=== PATIENT | female | born 1955 | race Two or more races ===

== ENCOUNTER 2023-10-21 10:52 | Inpatient (IN) | payer OTHER ==
[2023-10-21] MEDS: SODIUM CHLORIDE 0.9% 500 ML INFUS.BAG IV ONE (12:22)
[2023-10-21 12:40] LABS: BASO % 1.7 % (0-2.0); EOS % 2.1 % (0-4.5); HEMATOCRIT 47.8 % (32.4-45.2); HEMOGLOBIN 15.8 GM/dL (10.7-15.3); LYMPH % 27.7 % (8-40); MCH 29.7 pg (25.7-33.7); MCHC 33.1 g/dl (32.0-36.0); MEAN CELL VOLUME 89.7 fl (80-96); MEAN PLT VOLUME 8.7 fl (7.5-11.1); MONO % 12.1 % (3.8-10.2); NEUT % 56.4 % (42.8-82.8); PLATELET COUNT 356 10^3/uL (134-434); RBC 5.33 M/mm3 (3.60-5.2); RDW 16.8 % (11.6-15.6); WHITE BLOOD COUNT 7.5 K/mm3 (4.0-10.0)
[2023-10-21 12:43] LABS: PROTHROMBIN TIME (PATIENT) 11.3 SEC (9.7-13.0)
[2023-10-21 12:46] LABS: ACTIVATED PTT 36.9 SECONDS (25.2-36.5)
[2023-10-21 12:50] LABS: POTASSIUM 4.4 mmol/L (3.5-5.1)
[2023-10-21 12:52] LABS: CALCIUM 9.5 mg/dL (8.5-10.1)
[2023-10-21 12:53] LABS: ALBUMIN 3.7 g/dl (3.4-5.0); BLOOD UREA NITROGEN 17.4 mg/dL (7-18); MAGNESIUM 2.5 mg/dL (1.8-2.4)
[2023-10-21 12:56] LABS: CREATININE 1.1 mg/dL (0.55-1.3)
[2023-10-21] MEDS: metoPROLOL SUCCINATE 25 MG TAB.SR.24H (FP) PO ONE (12:56)
[2023-10-21 12:57] LABS: BILIRUBIN,TOTAL 0.6 mg/dL (0.2-1); TOT PROT 7.9 g/dl (6.4-8.2)
[2023-10-21 16:58] VITALS: BMI 31.5
[2023-10-21] MEDS: ACETAMINOPHEN 325 MG TABLET (FP) PO PRN (18:33)
[2023-10-21] MEDS: SACUBITRIL/VALSARTAN 24 MG-26 MG TABLET PO SCH (21:35)
[2023-10-21] MEDS: ROSUVASTATIN CA 20 MG TABLET PO SCH (21:35)
[2023-10-21] MEDS: LIDOCAINE PATCH REMOVAL MC SCH (21:36)
[2023-10-21] MEDS: GABAPENTIN 300 MG CAPSULE PO SCH (21:36)
[2023-10-22 08:14] LABS: BASO % 0.7 % (0-2.0); EOS % 3.2 % (0-4.5); HEMATOCRIT 46.1 % (32.4-45.2); LYMPH % 41.2 % (8-40); MCH 29.5 pg (25.7-33.7); MCHC 32.7 g/dl (32.0-36.0); MEAN CELL VOLUME 90.3 fl (80-96); MEAN PLT VOLUME 9.3 fl (7.5-11.1); NEUT % 43.9 % (42.8-82.8); PLATELET COUNT 351 10^3/uL (134-434); RDW 17.1 % (11.6-15.6); WHITE BLOOD COUNT 6.2 K/mm3 (4.0-10.0)
[2023-10-22 08:28] LABS: POTASSIUM 4.4 mmol/L (3.5-5.1)
[2023-10-22 08:31] LABS: CALCIUM 8.6 mg/dL (8.5-10.1); MAGNESIUM 2.2 mg/dL (1.8-2.4)
[2023-10-22 08:33] LABS: ALBUMIN 3.4 g/dl (3.4-5.0); BLOOD UREA NITROGEN 14.5 mg/dL (7-18)
[2023-10-22 08:36] LABS: PHOSPHOROUS 3.5 mg/dL (2.5-4.9); TOT PROT 7.2 g/dl (6.4-8.2)
[2023-10-22 08:38] LABS: BILIRUBIN,TOTAL 0.6 mg/dL (0.2-1)
[2023-10-22] MEDS: LIDOCAINE 5% TOPICAL PATCH TP SCH (09:18)
[2023-10-22] MEDS: ENOXAPARIN NA (PORCINE) 40 MG/0.4 ML DISP.SYRIN SQ SCH (09:19)
[2023-10-22] MEDS: DULoxetine HCL 30 MG CAPSULE.DR PO SCH (09:19)
[2023-10-22] MEDS: metoPROLOL SUCCINATE 25 MG TAB.SR.24H (FP) PO SCH (13:26)
[2023-10-22] MEDS: DRONEDARONE HCL 400 MG TAB (FP) PO SCH (17:43)
[2023-10-22] MEDS ORDERED: metoPROLOL SUCCINATE 25 MG TAB.SR.24H (FP) PO SCH (18:00)
[2023-10-22 18:22] VITALS: RESP 18
[2023-10-23 17:57] VITALS: BP 127/66; PULSE 64; TEMP 98.4
== END 2023-10-23 18:45 | disposition home or self-care (01) | DRG 201 ==
LOC: JER 10:52 → JERBED 14:07 → OBSVTOIN 14:58 → J4W 15:58
PROVIDERS: ADMIT Internal Medicine; ATTEND Internal Medicine
DX: I47.19 Other supraventricular tachycardia (principal); I44.2 Atrioventricular block, complete; I25.10 Atherosclerotic heart disease of native coronary artery without angina pectoris; E78.5 Hyperlipidemia, unspecified; I27.20 Pulmonary hypertension, unspecified; R55 Syncope and collapse; I11.0 Hypertensive heart disease with heart failure; I50.32 Chronic diastolic (congestive) heart failure; G47.33 Obstructive sleep apnea (adult) (pediatric); I48.4 Atypical atrial flutter; I48.0 Paroxysmal atrial fibrillation; Z86.73 Personal history of transient ischemic attack (TIA), and cerebral infarction without residual deficits
CPT/HCPCS: 36415; 71045-TC-FY; 80053; 80061; 82962; 83036; 83735; 83880; 84100; 84443; 84484; 85025; 85610; 85730; 93005; 93010; 99285-25; G0378